=== PATIENT | female | born 1990 | race African-American/Black ===

== ENCOUNTER 2016-04-26 08:46 | Outpatient (CLI) | payer OTHER ==
[~2016-04-26] VITALS: Ht 165.2 cm; Wt 57.7 kg
[~2016-04-26 08:46] MED LIST: CEPHALEXIN500 M1 PO; MOTRIN 600600 MG/TAB PO; PERCOCET 325 MG1 TA2 PO; PRENATAL1 TA7 PO
[2016-04-26] MEDS ORDERED: BUSPAR5 MG PO (09:15)
[2016-04-26 09:37] VITALS: BP 131/68; PULSE 77; TEMP 98.2
[2016-04-26 11:25] VITALS: BP 109/76; PULSE 83
== END 2016-04-26 11:55 | disposition home or self-care (01) ==
LOC: EUO 08:46
DX: R00.2 Palpitations (principal); R42 Dizziness and giddiness